=== PATIENT | male | born 1985 | race American Indian/Alaskan Native ===

== ENCOUNTER 2017-05-18 05:49 | Inpatient (IN) | payer SELFPAY ==
[2017-05-18 05:49] VITALS: BMI 36.5
--- NOTE | 2017-05-18 06:16 | C.PDOC ---
Time Seen by Provider: 05/18/17 06:15 Chief Complaint (Nursing): Substance Abuse Past Medical History Vital Signs: Last Vital Signs Temp 98.7 F 05/18/17 06:01 Pulse 108 H 05/18/17 06:01 Resp 15 05/18/17 06:01 BP 109/56 L 05/18/17 06:01 Pulse Ox 92 L 05/18/17 06:01 - Medical History PMH: Anxiety, Asthma, Depression, Schizophrenia, Sleep Apnea Denies: Diabetes, Hepatitis, HIV, HTN, Chronic Kidney Disease, Seizures, Sexually Transmitted Disease - [facility] Procedures IMMOBILIZ/WOUND ATTN NEC (04/12/14) INJECT/INFUSE NEC (04/12/14) Family History: States: Unknown Family Hx - Social History Hx Tobacco Use: No Hx Alcohol Use: Yes Hx Substance Use: Yes - Immunization History Hx Tetanus Toxoid Vaccination: No Hx Influenza Vaccination: No Hx Pneumococcal Vaccination: No ED Course And Treatment O2 Sat by Pulse Oximetry: 92 Disposition Counseled Patient/Family Regarding: Studies Performed, Diagnosis - Disposition Disposition Time: 06:16 Forms: [employer] (Citizen Of [place])
[2017-05-18] MEDS ORDERED: Sodium Chloride 0.9% 1,000 ML IV ONE ×2 (06:22→07:20)
--- NOTE | 2017-05-18 06:22 | C.PDOC ---
History Of Present Illness Pt was found unresponsive by his in bed. Called 911. Received IN narcan and returned slowly to baseline. Good oxygen saturation. Pt was up all night playing a game, and went to bed around 4am. noticed increased snoring, and wanted to give him the cpap machine , but pt refused. He does take percocet for leg pain and xanax. Pt denies any drug use. also states he is on a special diet in which he eats only once a day, high protein Time Seen by Provider: 05/18/17 06:15 Chief Complaint (Nursing): Substance Abuse History Per: EMS, Family History/Exam Limitations: no limitations Onset/Duration Of Symptoms: Mins Current Symptoms Are (Timing): Better Severity: Severe Pain Scale Rating Of: 8 Past Medical History Reviewed: Historical Data, Nursing Documentation, Vital Signs Vital Signs: Last Vital Signs Temp 98.7 F 05/18/17 06:01 Pulse 108 H 05/18/17 06:01 Resp 15 05/18/17 06:01 BP 109/56 L 05/18/17 06:01 Pulse Ox 92 L 05/18/17 06:50 - Medical History PMH: Anxiety, Asthma, Depression, Schizophrenia, Sleep Apnea Denies: Diabetes, Hepatitis, HIV, HTN, Chronic Kidney Disease, Seizures, Sexually Transmitted Disease - [facility] Procedures IMMOBILIZ/WOUND ATTN NEC (04/12/14) INJECT/INFUSE NEC (04/12/14) Family History: States: No Known Family Hx - Social History Hx Tobacco Use: No Hx Alcohol Use: Yes Hx Substance Use: Yes - Immunization History Hx Tetanus Toxoid Vaccination: No Hx Influenza Vaccination: No Hx Pneumococcal Vaccination: No Review Of Systems Constitutional: Negative for: Fever, Chills Eyes: Negative for: Redness ENT: Negative for: Throat Pain Cardiovascular: Negative for: Chest Pain Respiratory: Negative for: Shortness of Breath Gastrointestinal: Negative for: Nausea, Vomiting, Abdominal Pain Genitourinary: Negative for: Dysuria Musculoskeletal: Negative for: Back Pain Skin: Negative for: Rash, Lesions Neurological: Negative for: Weakness Psych: Negative for: Anxiety Physical Exam - Physical Exam Appears: In Acute Distress Skin: Warm, Dry Head: Normacephalic Eye(s): bilateral: Normal Inspection, PERRL, EOMI Oral Mucosa: Dry Neck: Trachea Midline, Supple Chest: Symmetrical Cardiovascular: Rhythm Regular Respiratory: No Rales, Rhonchi (few at bases) Gastrointestinal/Abdominal: Soft, No Tenderness, No Distention Back: Normal Inspection Extremity: Normal ROM Extremity: Bilateral: Atraumatic, Normal Color And Temperature, Normal ROM Pulses: Left Dorsalis Pedis: Normal, Right Dorsalis Pedis: Normal Neurological/Psych: Oriented x3, Normal Speech, Normal Cognition Gait: Unable To Assess ED Course And Treatment - Laboratory Results Result Diagrams: 05/18/17 06:30 O2 Sat by Pulse Oximetry: 92 Critical Care Time - Critical Care Note Total Time (in mins): 30 Documented critical care: time excludes all time spent performing seperately billable procedures. Disposition Counseled Patient/Family Regarding: Studies Performed, Diagnosis - Disposition Disposition Time: 06:22 Condition: UNKNOWN Forms: [employer] ([place]) - Clinical Impression Clinical Impression: Change in mental status Physician Patient Turnover Patient Signed Over To: Christiane Murillo Handoff Comments: pending labs, reevaluation and disposition
[2017-05-18 06:34] LABS: GRANULAR CAST 3 /lpf (0-1); RBC URINE 1 /hpf (0-3); URINE BILIRUBIN NEGATIVE (NEGATIVE); URINE BLOOD NEGATIVE (NEGATIVE); URINE COLOR Yellow (YELLOW); URINE GLUCOSE (UA) 1+ mg/dL (Normal); URINE KETONE NEGATIVE (NEGATIVE); URINE LEUKOCYTE ESTERASE NEG Leu/uL (Negative); URINE PROTEIN 1+ mg/dL (NEGATIVE); URINE UROBILINOGEN NORMAL mg/dL (0.2-1.0); WBC URINE 3 /hpf (0-5)
[2017-05-18 06:37] LABS: BASO # 0.1 K/uL (0.0-0.2); BASO % 0.4 % (0.0-2.0); EOS % 0.2 % (0.0-4.0); HEMATOCRIT 36.7 % (35.0-51.0); LYMPH # 1.5 K/uL (1.0-4.3); LYMPH % 6.4 % (20.0-40.0); MEAN CORPUSCULAR HEMOGLOBIN 28.7 pg (27.0-31.0); MEAN CORPUSCULAR HGB CONC 32.3 g/dL (33.0-37.0); MEAN PLATELET VOLUME 8.4 fL (7.2-11.7); MONO # 0.6 K/uL (0.0-0.8); MONO % 2.6 % (0.0-10.0); NRBC % 0.1 % (0.0-2.0); PLATELET COUNT 244 K/uL (130-400); WHITE BLOOD COUNT 23.9 K/uL (4.8-10.8)
[2017-05-18 06:40] LABS: VENOUS BLOOD GAS BASE EXCESS -6.6 mmol/L (0.0-2.0); VENOUS BLOOD GAS PCO2 72 mmHg (40-60); VENOUS BLOOD PH 7.13 (7.32-7.43)
[2017-05-18 06:41] LABS: INR 1.1
[2017-05-18 06:54] LABS: ALB/GLOB RATIO 1.3 (1.0-2.1); TOTAL PROTEIN 6.8 g/dL (6.3-8.3)
[2017-05-18 06:55] LABS: CALCIUM 8.2 mg/dl (8.6-10.4)
[2017-05-18 07:02] LABS: POTASSIUM 6.6 mmol/L (3.6-5.2)
--- NOTE | 2017-05-18 07:23 | CT ---
EXAM: CT Head Without Intravenous Contrast EXAM DATE/TIME: 05/18/2017 6:22 AM CLINICAL HISTORY: 32 years old, male; Pain; Headache and other: AMS TECHNIQUE: Axial computed tomography images of the head/brain without intravenous contrast. All CT scans at this facility use one or more dose reduction techniques, viz.: automated exposure control; ma/kV adjustment per patient size (including targeted exams where dose is matched to indication; i.e. head); or iterative reconstruction technique. COMPARISON: No relevant prior studies available. FINDINGS: No intracranial hemorrhage. No intracranial edema. No evidence of infarct. No significant fluid in the sinuses or mastoid air cells. IMPRESSION: No acute findings.
[2017-05-18] MEDS ORDERED: Naloxone 0.4 mg/ml Inj (Adult) IV STA (07:44)
[2017-05-18] MEDS ORDERED: Sodium Chloride 0.9% 1,000 ML ONE (07:50)
[2017-05-18] MEDS ORDERED: Naloxone 0.4 mg/ml Inj (Adult) ONE (07:50)
[2017-05-18 07:53] LABS: ABG ALLEN TEST POS; ARTERIAL BLOOD GAS MODE BiPAP; DRAW SITE RR
[2017-05-18 08:23] LABS: NEUTROPHIL 81 % (50-75); TOTAL CELLS COUNTED 100
[2017-05-18 08:30] LABS: POTASSIUM 4.6 mmol/L (3.6-5.2)
[2017-05-18 08:33] LABS: CALCIUM 7.9 mg/dl (8.6-10.4)
--- NOTE | 2017-05-18 08:36 | RAD ---
HISTORY: AMS COMPARISON: None available. TECHNIQUE: Chest, one view. FINDINGS: Examination limited by habitus and hypoinflation. LUNGS: Subsegmental atelectasis, right lung base. PLEURA: No significant pleural effusion identified. No definite pneumothorax . CARDIOVASCULAR: Borderline cardiomegaly, likely exaggerated by hypoinflation and portable technique. OSSEOUS STRUCTURES: No acute osseous abnormality identified. VISUALIZED UPPER ABDOMEN: Unremarkable. OTHER FINDINGS: None. IMPRESSION: Subsegmental atelectasis, right lung base. Borderline cardiomegaly, likely exaggerated by hypoinflation and portable technique.
[2017-05-18 10:11] LABS: BASO # 0.1 K/uL (0.0-0.2); BASO % 0.3 % (0.0-2.0); EOS % 0.1 % (0.0-4.0); HEMATOCRIT 34.3 % (35.0-51.0); LYMPH # 1.8 K/uL (1.0-4.3); LYMPH % 6.4 % (20.0-40.0); MEAN CELL VOLUME 88.2 fL (80.0-94.0); MEAN CORPUSCULAR HEMOGLOBIN 28.6 pg (27.0-31.0); MEAN CORPUSCULAR HGB CONC 32.4 g/dL (33.0-37.0); MEAN PLATELET VOLUME 8.7 fL (7.2-11.7); MONO # 1.4 K/uL (0.0-0.8); RED CELL DISTRIBUTION WIDTH 14.9 % (11.5-14.5)
--- NOTE | 2017-05-18 11:44 | CT ---
CT chest, abdomen, and pelvis without IV contrast Indication: Worsening leukocytosis, altered mental status Technique: Contiguous axial images of the chest, abdomen, and pelvis without oral or IV contrast. Coronal and Sagittal reformats generated and reviewed. This CT exam was performed using 1 or more of the falling dose reduction techniques: Automated exposure control, adjustment of the MAA and/or kV according to patient size, and/or use of iterative reconstruction technique. Radiation dose: Total exam DLP = 2039.49 MGy-cm. Comparison: CT abdomen and pelvis without oral or IV contrast performed 10/11/15 Findings: Visualized portions of the inferior thyroid gland appear unremarkable. The unenhanced mediastinal and hilar vascular structures appear grossly unremarkable. Sub cm prevascular and mediastinal lymph nodes, nonspecific. The heart appears within normal limits of size. Mild dependent basilar atelectasis. No focal consolidation. No pleural effusion. No pneumothorax. No suspicious pulmonary nodules measuring greater than 5 mm. Hepatomegaly. Hypoattenuation of the liver compatible with hepatic steatosis. The noncontrast spleen, kidneys, pancreas, adrenal glands, and gallbladder appear unremarkable. Sub cm mesenteric/retroperitoneal lymph nodes, nonspecific. The stomach is nondistended. Lack of oral contrast limits evaluation for bowel pathology. The bowel loops appear within normal limits of caliber without evidence of intestinal obstruction. The appendix appears within normal limits of caliber. No secondary signs of acute appendicitis.There is no definite free air. Distended urinary bladder appears otherwise unremarkable. No acute osseous abnormality is detected. Impression: Hepatomegaly. Hepatic steatosis.
[2017-05-18 12:11] LABS: ABG ALLEN TEST UNABLE; CARBOXYHEMOGLOBIN 2.8 % (0.5-1.5); DRAW SITE LR; METHEMOGLOBIN 1.2 % (0.0-3.0)
[2017-05-18 13:31] VITALS: RESP 20
--- NOTE | 2017-05-18 13:38 | CP.PCM.HP ---
<Tommy Mojica - Last Filed: 05/18/17 13:24> History of Present Illness - History of Present Illness History of Present Illness: cc: "I don't remember what happened" HPI: Patient is a 32 year old male with PMHx of chronic back and knee pain, anxiety presenting to the ED after being brought in by ambulance after being found unresponsive in bed by his , as per ED note. Patient is unable to give a detailed history, he states he doesn't recall anything about what happened. He says the last thing he recalls is taking one percocet and one xanax prior, then going to bed. The next thing he knew, he woke up in the hospital. The ED physician notes that his believes he took 2 percocet and 2 xanax and that he has been under stress recently. Patient currently reports no acute complaints. He appears lethargic, but is responsive to questions. PMD: [facility] PMHx: As stated above PSHx: Denies Allergies: NKDA Fam hx: Denies Social hx: Admits to smoking 1 black and miles daily, denies alcohol or drug use. Lives at home with . Present on Admission - Present on Admission Any Indicators Present on Admission: No Review of Systems - Constitutional Constitutional: absent: Anorexia, Chills, Daytime Sleepiness - EENT Eyes: absent: Blurred Vision, Change in Vision - Cardiovascular Cardiovascular: absent: Chest Pain, Claudication, Irregular Heart Rhythm, Leg Edema, Palpitations, Pedal Edema - Respiratory Respiratory: absent: Cough, Dyspnea, Hemoptysis, Dyspnea on Exertion, Wheezing - Gastrointestinal Gastrointestinal: absent: Abdominal Pain, Constipation, Diarrhea, Heartburn, Loose Stools, Nausea - Genitourinary Genitourinary: absent: Difficulty Urinating, Dysuria - Musculoskeletal Musculoskeletal: absent: Back Pain, Myalgias, Numbness, Tingling - Integumentary Integumentary: absent: Skin Ulcer, Sores, Striae, Wounds - Neurological Neurological: absent: Abnormal Movements, Tingling, Tremor, Weakness - Psychiatric Psychiatric: absent: Anxiety, Panic Attacks, Suicidal Ideation Past Patient History - Infectious Disease Hx of Infectious Diseases: None - Tetanus Immunizations Tetanus Immunization: Unknown - Past Social History Smoking Status: Current Some Days Smoker Chewing Tobacco Use: No Cigar Use: No Alcohol: None Drugs: Denies Home Situation {Lives}: With Family - CARDIAC Hx Hypertension: No - PULMONARY Hx Asthma: Yes Hx Sleep Apnea: Yes - NEUROLOGICAL Hx Seizures: No - HEENT Hx HEENT Problems: No - RENAL Hx Chronic Kidney Disease: No - ENDOCRINE/METABOLIC Hx Endocrine Disorders: No - HEMATOLOGICAL/ONCOLOGICAL Hx Human Immunodeficiency Virus (HIV): No - INTEGUMENTARY Hx Dermatological Problems: No - MUSCULOSKELETAL/RHEUMATOLOGICAL Hx Musculoskeletal Disorders: No Hx Back Pain: Yes - GASTROINTESTINAL Hx Gastrointestinal Disorders: No - GENITOURINARY/GYNECOLOGICAL Hx Sexually Transmitted Disorders: No - PSYCHIATRIC Hx Anxiety: Yes Hx Depression: Yes Hx Schizophrenia: Yes Hx Substance Use: Yes - SURGICAL HISTORY Hx Surgeries: No - ANESTHESIA Hx Anesthesia: Yes Hx Anesthesia Reactions: No Hx Malignant Hyperthermia: No Meds Allergies/Adverse Reactions: Allergies Allergy/AdvReac Type Severity Reaction Status Date / Time nut - unspecified Allergy Severe ANAPHYLAXIS Verified 12/09/16 14:29 Physical Exam - Constitutional Appears: Non-toxic, No Acute Distress - Head Exam Head Exam: ATRAUMATIC, NORMAL INSPECTION, NORMOCEPHALIC - Eye Exam Pupil Exam: NORMAL ACCOMODATION - ENT Exam ENT Exam: Mucous Membranes Moist - Respiratory Exam Respiratory Exam: Clear to Auscultation Bilateral, NORMAL BREATHING PATTERN. absent: Prolonged Expiratory Phase, Rales, Rhonchi, Wheezes - Cardiovascular Exam Cardiovascular Exam: REGULAR RHYTHM, +S1, +S2 - GI/Abdominal Exam GI & Abdominal Exam: Normal Bowel Sounds, Soft. absent: Distended, Firm, Guarding, Hernia, Tenderness - Extremities Exam Extremities exam: Positive for: normal capillary refill, pedal pulses present - Neurological Exam Neurological exam: Alert, CN II-XII Intact, Oriented x3 - Psychiatric Exam Psychiatric exam: Normal Affect, Normal Mood - Skin Skin Exam: Dry, Intact, Normal Color, Warm Results - Vital Signs Recent Vital Signs: Last Vital Signs Temp 98.9 F 05/18/17 12:28 Pulse 94 H 05/18/17 12:28 Resp 16 05/18/17 12:28 BP 104/62 05/18/17 12:28 Pulse Ox 97 05/18/17 12:28 - Labs Result Diagrams: 05/18/17 10:08 05/18/17 07:59 Labs: Laboratory Results - last 24 hr 05/18/17 12:08 Puncture Site Lr pCO2 51 H pO2 77 L HCO3 23.5 ABG pH 7.30 L ABG Total CO2 26.7 ABG O2 Saturation 97.9 ABG Base Excess -1.7 ABG Hemoglobin 11.1 L ABG Carboxyhemoglobin 2.8 H POC ABG HHb (Measured) 2.0 ABG Methemoglobin 1.2 Jareth Test Unable A-a O2 Difference 59.0 Respiratory Index 0.8 Hgb O2 Saturation 94.0 L Liter Flow 2.0 FiO2 28.0 Assessment & Plan (1) Drug overdose Status: Acute Comment: Given Narcan in the field and once in ED. initially acidotic on ABG, improved on Bipap in ED. UDS- positive for benzos. Will continue to monitor for lethargy and respiratory distress. Currently stable on nasal cannula (2) Leukocytosis Status: Acute Comment: WBC went up from 23.9 to 28.0. Started on Zosyn 3.375gm IVPB Q6h (05/18). Started on Vanco 1gm IVPB Q24h (05/18/17). f/u blood and urine cultures/ UA. Lactate 1.8 on 05/18/17 (3) Elevated CK Status: Acute Comment: Total CK 592. f/u CK. Started on IVF NS @ 150cc/hr (4) AUDREY (acute kidney injury) Status: Acute Comment: BUN/CR 11/1.9, GFR 50. Started on IVF NS @ 150cc/hr (5) Morbid obesity Status: Acute Comment: Heart Healthy, mod CHO diet. f/u [id number], lipid panel (6) Prophylactic measure Status: Acute Comment: SCDs. Protonix 40mg PO Daily <Jerome Benites H - Last Filed: 05/18/17 15:38> Results - Vital Signs Recent Vital Signs: Last Vital Signs Temp 98.9 F 05/18/17 13:15 Pulse 90 05/18/17 13:15 Resp 20 05/18/17 13:15 BP 122/83 05/18/17 13:15 Pulse Ox 98 05/18/17 13:15 - Labs Result Diagrams: 05/18/17 10:08 05/18/17 07:59 Labs: Laboratory Results - last 24 hr 05/18/17 12:08 Puncture Site Lr pCO2 51 H pO2 77 L HCO3 23.5 ABG pH 7.30 L ABG Total CO2 26.7 ABG O2 Saturation 97.9 ABG Base Excess -1.7 ABG Hemoglobin 11.1 L ABG Carboxyhemoglobin 2.8 H POC ABG HHb (Measured) 2.0 ABG Methemoglobin 1.2 Jareth Test Unable A-a O2 Difference 59.0 Respiratory Index 0.8 Hgb O2 Saturation 94.0 L Liter Flow 2.0 FiO2 28.0 Attending/Attestation - Attestation I have personally seen and examined this patient.: Yes I have fully participated in the care of the patient.: Yes I have reviewed all pertinent clinical information: Yes Notes (Text): Medical Attending: Patient was seen and examined by me - agree with the above note by the resident. Patient was already on 6T when we saw him. Intially there were some concerns he may have needed to go to the ICU due to the respiratory status however he improved with narcan as well as bipap in the ER. By the time I saw the patient he was sleeping and easily awoke. His affect is very very slow and likley seconday to opiate and benzodiazapine. The patient on lab work has a very elevated WBC. This maybe stress related however as a precaution will check blood cultures as well as start IV abx Zosyn and Vancomycin. CXRAY appeared ok at this time. When he is more awake and alert will have to ask again about potential IVDA as he can have an endocarditis risk thank you Jerome Benites
[2017-05-18] MEDS ORDERED: Pantoprazole 40 mg EC Tab PO SCH (14:00)
[2017-05-18] MEDS ORDERED: Piperacillin/Tazobact 3.375 GM in Sodium Chloride 100 ML IVPB SCH (14:00)
[2017-05-18] MEDS: Sodium Chloride 0.9% 1,000 ML IV SCH ×2 (14:56→21:22)
[2017-05-18] MEDS: Piperacillin/Tazobact 3.375 GM in Sodium Chloride 100 ML IVPB SCH ×2 (16:29→22:50)
[2017-05-18 18:14] LABS: RBC URINE 58 /hpf (0-3); URINE BILIRUBIN NEGATIVE (NEGATIVE); URINE BLOOD 3+ (NEGATIVE); URINE COLOR Straw (YELLOW); URINE GLUCOSE (UA) NORMAL (Normal); URINE KETONE NEGATIVE (NEGATIVE); URINE LEUKOCYTE ESTERASE NEG Leu/uL (Negative); URINE PROTEIN NEGATIVE (NEGATIVE); URINE UROBILINOGEN NORMAL mg/dL (0.2-1.0); WBC URINE 3 /hpf (0-5)
[2017-05-19] MEDS: Piperacillin/Tazobact 3.375 GM in Sodium Chloride 100 ML IVPB SCH (03:50)
[2017-05-19] MEDS: Sodium Chloride 0.9% 1,000 ML IV SCH (03:52)
[2017-05-19 06:27] LABS: BASO # 0.1 K/uL (0.0-0.2); BASO % 0.7 % (0.0-2.0); EOS # 0.3 K/uL (0.0-0.7); EOS % 2.7 % (0.0-4.0); HEMATOCRIT 32.8 % (35.0-51.0); LYMPH % 25.5 % (20.0-40.0); MEAN CELL VOLUME 87.5 fL (80.0-94.0); MEAN CORPUSCULAR HEMOGLOBIN 29.6 pg (27.0-31.0); MEAN CORPUSCULAR HGB CONC 33.9 g/dL (33.0-37.0); MONO # 0.5 K/uL (0.0-0.8); MONO % 4.1 % (0.0-10.0); RED CELL DISTRIBUTION WIDTH 14.9 % (11.5-14.5); WHITE BLOOD COUNT 11.9 K/uL (4.8-10.8)
[2017-05-19 06:28] LABS: CHLORIDE 106 mmol/L (98-107); POTASSIUM 4.1 mmol/L (3.6-5.2); SODIUM 140 mmol/L (132-148)
[2017-05-19 06:30] LABS: ALB/GLOB RATIO 1.1 (1.0-2.1); BILIRUBIN,TOTAL 0.7 mg/dL (0.2-1.3); CARBON DIOXIDE 27 mmol/L (22-30); CHOLESTEROL 144 mg/dL (0-199); GFR AFRICAN-AMERICAN > 60; TOTAL PROTEIN 5.8 g/dL (6.3-8.3)
[2017-05-19 06:31] LABS: ALKALINE PHOSPHATASE 86 U/L (38-126); ALT/SGPT 93 U/L (21-72); AST/SGOT 84 U/L (17-59); BLOOD UREA NITROGEN 7 mg/dL (9-20); CALCIUM 8.1 mg/dl (8.6-10.4); GLUCOSE,RANDOM 100 mg/dL (75-110); MAGNESIUM 1.9 mg/dL (1.6-2.3); PHOSPHOROUS 4.6 mg/dL (2.5-4.5)
--- NOTE | 2017-05-19 08:37 | CP.PCM.DIS ---
Provider - Provider Date of Admission: 05/18/17 11:38 Attending physician: Jerome Benites DO Time Spent in preparation of Discharge (in minutes): 29 Hospital Course - Lab Results Lab Results: Most Recent Lab Values WBC 11.9 K/uL (4.8-10.8) H D 05/19/17 06:07 RBC 3.75 Mil/uL (4.40-5.90) L 05/19/17 06:07 Hgb 11.1 g/dL (12.0-18.0) L 05/19/17 06:07 Hct 32.8 % (35.0-51.0) L 05/19/17 06:07 MCV 87.5 fL (80.0-94.0) 05/19/17 06:07 MCH 29.6 pg (27.0-31.0) 05/19/17 06:07 MCHC 33.9 g/dL (33.0-37.0) 05/19/17 06:07 RDW 14.9 % (11.5-14.5) H 05/19/17 06:07 Plt Count 169 K/uL (130-400) 05/19/17 06:07 MPV 8.0 fL (7.2-11.7) 05/19/17 06:07 Neut % (Auto) 67.0 % (50.0-75.0) 05/19/17 06:07 Lymph % (Auto) 25.5 % (20.0-40.0) 05/19/17 06:07 [place] % (Auto) 4.1 % (0.0-10.0) 05/19/17 06:07 Eos % (Auto) 2.7 % (0.0-4.0) 05/19/17 06:07 Baso % (Auto) 0.7 % (0.0-2.0) 05/19/17 06:07 Neut # 8.0 K/uL (1.8-7.0) H 05/19/17 06:07 Lymph # 3.0 K/uL (1.0-4.3) 05/19/17 06:07 [place] # 0.5 K/uL (0.0-0.8) 05/19/17 06:07 Eos # 0.3 K/uL (0.0-0.7) 05/19/17 06:07 Baso # 0.1 K/uL (0.0-0.2) 05/19/17 06:07 Neutrophils % (Manual) 81 % (50-75) H 05/18/17 06:30 Band Neutrophils % 4 % (0-2) H 05/18/17 06:30 Lymphocytes % (Manual) 10 % (20-40) L 05/18/17 06:30 Monocytes % (Manual) 5 % (0-10) 05/18/17 06:30 Platelet Estimate Normal (NORMAL) 05/18/17 06:30 Hypochromasia (manual) Slight 05/18/17 06:30 Anisocytosis (manual) Slight 05/18/17 06:30 PT 11.9 SECONDS (9.7-12.2) 05/18/17 06:30 INR 1.1 05/18/17 06:30 APTT 29 SECONDS (21-34) 05/18/17 06:30 Puncture Site Lr 05/18/17 12:08 pCO2 51 mm/Hg (35-45) H 05/18/17 12:08 pO2 77 mm/Hg (80-100) L 05/18/17 12:08 HCO3 23.5 mmol/L (21-28) 05/18/17 12:08 ABG pH 7.30 (7.35-7.45) L 05/18/17 12:08 ABG Total CO2 26.7 mmol/L (22-28) 05/18/17 12:08 ABG O2 Saturation 97.9 % (95-98) 05/18/17 12:08 ABG Base Excess -1.7 mmol/L (-2.0-3.0) 05/18/17 12:08 ABG Hemoglobin 11.1 g/dL (11.7-17.4) L 05/18/17 12:08 ABG Carboxyhemoglobin 2.8 % (0.5-1.5) H 05/18/17 12:08 POC ABG HHb (Measured) 2.0 % (0.0-5.0) 05/18/17 12:08 ABG Methemoglobin 1.2 % (0.0-3.0) 05/18/17 12:08 Jareth Test Unable 05/18/17 12:08 ABG Potassium 4.2 mmol/L (3.6-5.2) 05/18/17 07:49 VBG pH 7.13 (7.32-7.43) L* 05/18/17 06:37 VBG pCO2 72 mmHg (40-60) H* 05/18/17 06:37 VBG HCO3 17.7 mmol/L 05/18/17 06:37 VBG Total CO2 26.2 mmol/L (22-28) 05/18/17 06:37 VBG O2 Sat (Calc) 29.1 % (40-65) L 05/18/17 06:37 VBG Base Excess -6.6 mmol/L (0.0-2.0) L 05/18/17 06:37 VBG Potassium 6.3 mmol/L (3.6-5.2) H* 05/18/17 06:37 A-a O2 Difference 59.0 mm/Hg 05/18/17 12:08 Respiratory Index 0.8 05/18/17 12:08 Hgb O2 Saturation 94.0 % (95.0-98.0) L 05/18/17 12:08 Sodium 142.0 mmol/l (132-148) 05/18/17 07:49 Chloride 111.0 mmol/L (98-107) H 05/18/17 07:49 Glucose 97 mg/dl (75-110) 05/18/17 07:49 Lactate 1.8 mmol/L (0.7-2.1) 05/18/17 07:49 Liter Flow 2.0 05/18/17 12:08 Vent Mode Bipap 05/18/17 07:49 FiO2 28.0 % 05/18/17 12:08 Inspiratory BiPAP 12 05/18/17 07:49 Expiratory BiPAP 6 05/18/17 07:49 Crit Value Called To Dr gloria yusuf 05/18/17 07:49 Crit Value Called By Shelley hall compotype operator 05/18/17 07:49 Crit Value Read Back Y 05/18/17 07:49 Blood Gas Notified Time 753 05/18/17 07:49 Sodium 140 mmol/L (132-148) 05/19/17 06:07 Potassium 4.1 mmol/L (3.6-5.2) 05/19/17 06:07 Chloride 106 mmol/L (98-107) 05/19/17 06:07 Carbon Dioxide 27 mmol/L (22-30) 05/19/17 06:07 Anion Gap 11 (10-20) 05/19/17 06:07 BUN 7 mg/dL (9-20) L 05/19/17 06:07 Creatinine 1.1 MG/DL (0.8-1.5) 05/19/17 06:07 Est GFR ( Amer) > 60 05/19/17 06:07 Est GFR (Non-Af Amer) > 60 05/19/17 06:07 Random Glucose 100 mg/dL (75-110) 05/19/17 06:07 Calcium 8.1 mg/dl (8.6-10.4) L 05/19/17 06:07 Phosphorus 4.6 mg/dL (2.5-4.5) H 05/19/17 06:07 Magnesium 1.9 mg/dL (1.6-2.3) 05/19/17 06:07 Total Bilirubin 0.7 mg/dL (0.2-1.3) 05/19/17 06:07 AST 84 U/L (17-59) H 05/19/17 06:07 ALT 93 U/L (21-72) H 05/19/17 06:07 Alkaline Phosphatase 86 U/L (38-126) 05/19/17 06:07 Total Creatine Kinase 943 U/L (55-170) H 05/19/17 06:07 Total Protein 5.8 g/dL (6.3-8.3) L 05/19/17 06:07 Albumin 3.0 g/dL (3.5-5.0) L D 05/19/17 06:07 Globulin 2.8 gm/dL (2.2-3.9) 05/19/17 06:07 Albumin/Globulin Ratio 1.1 (1.0-2.1) 05/19/17 06:07 Triglycerides 98 mg/dL (0-149) 05/19/17 06:07 Cholesterol 144 mg/dL (0-199) 05/19/17 06:07 LDL Cholesterol Direct 86 mg/dL (0-129) 05/19/17 06:07 HDL Cholesterol 32 mg/dL (30-70) 05/19/17 06:07 Lipase 197 U/L (23-300) 05/18/17 06:30 Arterial Blood Potassium 4.2 mmol/L (3.6-5.2) 05/18/17 07:49 Venous Blood Potassium 6.3 mmol/L (3.6-5.2) H* 05/18/17 06:37 Urine Color Straw (YELLOW) 05/18/17 17:42 Urine Clarity Clear (Clear) 05/18/17 17:42 Urine pH 6.0 (5.0-8.0) 08 17:42 Ur Specific [place] 1.006 (1.003-1.030) 05/18/17 17:42 Urine Protein Negative mg/dL (NEGATIVE) 05/18/17 17:42 Urine Glucose (UA) Normal mg/dL (Normal) 05/18/17 17:42 Urine Ketones Negative mg/dL (NEGATIVE) 05/18/17 17:42 Urine Blood 3+ (NEGATIVE) H 05/18/17 17:42 Urine Nitrate Negative (NEGATIVE) 05/18/17 17:42 Urine Bilirubin Negative (NEGATIVE) 05/18/17 17:42 Urine Urobilinogen Normal mg/dL (0.2-1.0) 05/18/17 17:42 Ur Leukocyte Esterase Neg [place]/uL (Negative) 05/18/17 17:42 Urine WBC (Auto) 3 /hpf (0-5) 05/18/17 17:42 Urine RBC (Auto) 58 /hpf (0-3) H 05/18/17 17:42 Ur Squamous Epith Cells < 1 /hpf (0-5) 05/18/17 06:16 Hyaline Casts 11-20 /lpf (0-2) H 05/18/17 06:16 Granular Casts (Auto) 3 /lpf (0-1) 05/18/17 06:16 Broad Casts 8 /lpf (0-1) 05/18/17 06:16 Salicylates < 1.0 mg/dL 1 05/18/17 07:59 Urine Opiates Screen Negative (NEGATIVE) 05/18/17 06:16 Urine Methadone Screen Negative (NEGATIVE) 05/18/17 06:16 Acetaminophen < 10.0 ug/mL (10.0-30.0) L 08/25/17 07:59 Ur Barbiturates Screen Negative (NEGATIVE) 05/18/17 06:16 Ur Phencyclidine Scrn Negative (NEGATIVE) 05/18/17 06:16 Ur Amphetamines Screen Negative (NEGATIVE) 05/18/17 06:16 U Benzodiazepines Scrn Positive (NEGATIVE) 05/18/17 06:16 U Oth Cocaine Metabols Negative (NEGATIVE) 05/18/17 06:16 U Cannabinoids Screen Negative (NEGATIVE) 05/18/17 06:16 - Hospital Course Hospital Course: This is a 32 year old male with a history of chronic knee and back pain whom takes Percocet as well as Xanax on a regular basis. The patient was brought into the ER by ambulance after he was found by family to be less responsive than usual. In the ER there was concern that the patient may require intubation since on ABG he was initially low pH and also low O2 saturation however with the administration of narcan as well as Bipap he did well enough to go to the medical telemetry floor. When I saw the patient yesterday he was awake and alert - however somnolent. He was able to answer all questions and then fell back asleep. Today when I saw the patient he was actively walking in the hallway. He denied chest pain, denied palpitations, denied dizziness, denied headache, denied difficulty going to the bathroom, Discharge Exam - Head Exam Head Exam: ATRAUMATIC, NORMAL INSPECTION, NORMOCEPHALIC Discharge Plan - Follow Up Plan Condition: GUARDED Disposition: HOME/ ROUTINE
--- NOTE | 2017-05-19 08:51 | CP.PCM.DIS ---
Provider - Provider Date of Admission: 05/18/17 11:38 Attending physician: Jerome Benites DO Time Spent in preparation of Discharge (in minutes): 29 Hospital Course - Lab Results Lab Results: Most Recent Lab Values WBC 11.9 K/uL (4.8-10.8) H D 05/19/17 06:07 RBC 3.75 Mil/uL (4.40-5.90) L 05/19/17 06:07 Hgb 11.1 g/dL (12.0-18.0) L 05/19/17 06:07 Hct 32.8 % (35.0-51.0) L 05/19/17 06:07 MCV 87.5 fL (80.0-94.0) 05/19/17 06:07 MCH 29.6 pg (27.0-31.0) 05/19/17 06:07 MCHC 33.9 g/dL (33.0-37.0) 05/19/17 06:07 RDW 14.9 % (11.5-14.5) H 05/19/17 06:07 Plt Count 169 K/uL (130-400) 05/19/17 06:07 MPV 8.0 fL (7.2-11.7) 05/19/17 06:07 Neut % (Auto) 67.0 % (50.0-75.0) 05/19/17 06:07 Lymph % (Auto) 25.5 % (20.0-40.0) 05/19/17 06:07 [place] % (Auto) 4.1 % (0.0-10.0) 05/19/17 06:07 Eos % (Auto) 2.7 % (0.0-4.0) 05/19/17 06:07 Baso % (Auto) 0.7 % (0.0-2.0) 05/19/17 06:07 Neut # 8.0 K/uL (1.8-7.0) H 05/19/17 06:07 Lymph # 3.0 K/uL (1.0-4.3) 05/19/17 06:07 [place] # 0.5 K/uL (0.0-0.8) 05/19/17 06:07 Eos # 0.3 K/uL (0.0-0.7) 05/19/17 06:07 Baso # 0.1 K/uL (0.0-0.2) 05/19/17 06:07 Neutrophils % (Manual) 81 % (50-75) H 05/18/17 06:30 Band Neutrophils % 4 % (0-2) H 05/18/17 06:30 Lymphocytes % (Manual) 10 % (20-40) L 05/18/17 06:30 Monocytes % (Manual) 5 % (0-10) 05/18/17 06:30 Platelet Estimate Normal (NORMAL) 05/18/17 06:30 Hypochromasia (manual) Slight 05/18/17 06:30 Anisocytosis (manual) Slight 05/18/17 06:30 PT 11.9 SECONDS (9.7-12.2) 05/18/17 06:30 INR 1.1 05/18/17 06:30 APTT 29 SECONDS (21-34) 05/18/17 06:30 Puncture Site Lr 05/18/17 12:08 pCO2 51 mm/Hg (35-45) H 05/18/17 12:08 pO2 77 mm/Hg (80-100) L 05/18/17 12:08 HCO3 23.5 mmol/L (21-28) 05/18/17 12:08 ABG pH 7.30 (7.35-7.45) L 05/18/17 12:08 ABG Total CO2 26.7 mmol/L (22-28) 05/18/17 12:08 ABG O2 Saturation 97.9 % (95-98) 05/18/17 12:08 ABG Base Excess -1.7 mmol/L (-2.0-3.0) 05/18/17 12:08 ABG Hemoglobin 11.1 g/dL (11.7-17.4) L 05/18/17 12:08 ABG Carboxyhemoglobin 2.8 % (0.5-1.5) H 05/18/17 12:08 POC ABG HHb (Measured) 2.0 % (0.0-5.0) 05/18/17 12:08 ABG Methemoglobin 1.2 % (0.0-3.0) 05/18/17 12:08 Jareth Test Unable 05/18/17 12:08 ABG Potassium 4.2 mmol/L (3.6-5.2) 05/18/17 07:49 VBG pH 7.13 (7.32-7.43) L* 05/18/17 06:37 VBG pCO2 72 mmHg (40-60) H* 05/18/17 06:37 VBG HCO3 17.7 mmol/L 05/18/17 06:37 VBG Total CO2 26.2 mmol/L (22-28) 05/18/17 06:37 VBG O2 Sat (Calc) 29.1 % (40-65) L 05/18/17 06:37 VBG Base Excess -6.6 mmol/L (0.0-2.0) L 05/18/17 06:37 VBG Potassium 6.3 mmol/L (3.6-5.2) H* 05/18/17 06:37 A-a O2 Difference 59.0 mm/Hg 05/18/17 12:08 Respiratory Index 0.8 05/18/17 12:08 Hgb O2 Saturation 94.0 % (95.0-98.0) L 05/18/17 12:08 Sodium 142.0 mmol/l (132-148) 05/18/17 07:49 Chloride 111.0 mmol/L (98-107) H 05/18/17 07:49 Glucose 97 mg/dl (75-110) 05/18/17 07:49 Lactate 1.8 mmol/L (0.7-2.1) 05/18/17 07:49 Liter Flow 2.0 05/18/17 12:08 Vent Mode Bipap 05/18/17 07:49 FiO2 28.0 % 05/18/17 12:08 Inspiratory BiPAP 12 05/18/17 07:49 Expiratory BiPAP 6 05/18/17 07:49 Crit Value Called To Dr gloria yusuf 05/18/17 07:49 Crit Value Called By Shelley hall steamfitter apprentice 05/18/17 07:49 Crit Value Read Back Y 05/18/17 07:49 Blood Gas Notified Time 753 05/18/17 07:49 Sodium 140 mmol/L (132-148) 05/19/17 06:07 Potassium 4.1 mmol/L (3.6-5.2) 05/19/17 06:07 Chloride 106 mmol/L (98-107) 05/19/17 06:07 Carbon Dioxide 27 mmol/L (22-30) 05/19/17 06:07 Anion Gap 11 (10-20) 05/19/17 06:07 BUN 7 mg/dL (9-20) L 05/19/17 06:07 Creatinine 1.1 MG/DL (0.8-1.5) 05/19/17 06:07 Est GFR ( Amer) > 60 05/19/17 06:07 Est GFR (Non-Af Amer) > 60 05/19/17 06:07 Random Glucose 100 mg/dL (75-110) 05/19/17 06:07 Calcium 8.1 mg/dl (8.6-10.4) L 05/19/17 06:07 Phosphorus 4.6 mg/dL (2.5-4.5) H 05/19/17 06:07 Magnesium 1.9 mg/dL (1.6-2.3) 05/19/17 06:07 Total Bilirubin 0.7 mg/dL (0.2-1.3) 05/19/17 06:07 AST 84 U/L (17-59) H 05/19/17 06:07 ALT 93 U/L (21-72) H 05/19/17 06:07 Alkaline Phosphatase 86 U/L (38-126) 05/19/17 06:07 Total Creatine Kinase 943 U/L (55-170) H 05/19/17 06:07 Total Protein 5.8 g/dL (6.3-8.3) L 05/19/17 06:07 Albumin 3.0 g/dL (3.5-5.0) L D 05/19/17 06:07 Globulin 2.8 gm/dL (2.2-3.9) 05/19/17 06:07 Albumin/Globulin Ratio 1.1 (1.0-2.1) 05/19/17 06:07 Triglycerides 98 mg/dL (0-149) 05/19/17 06:07 Cholesterol 144 mg/dL (0-199) 05/19/17 06:07 LDL Cholesterol Direct 86 mg/dL (0-129) 05/19/17 06:07 HDL Cholesterol 32 mg/dL (30-70) 05/19/17 06:07 Lipase 197 U/L (23-300) 05/18/17 06:30 Arterial Blood Potassium 4.2 mmol/L (3.6-5.2) 05/18/17 07:49 Venous Blood Potassium 6.3 mmol/L (3.6-5.2) H* 05/18/17 06:37 Urine Color Straw (YELLOW) 05/18/17 17:42 Urine Clarity Clear (Clear) 05/18/17 17:42 Urine pH 6.0 (5.0-8.0) 08 17:42 Ur Specific [place] 1.006 (1.003-1.030) 05/18/17 17:42 Urine Protein Negative mg/dL (NEGATIVE) 05/18/17 17:42 Urine Glucose (UA) Normal mg/dL (Normal) 05/18/17 17:42 Urine Ketones Negative mg/dL (NEGATIVE) 05/18/17 17:42 Urine Blood 3+ (NEGATIVE) H 05/18/17 17:42 Urine Nitrate Negative (NEGATIVE) 05/18/17 17:42 Urine Bilirubin Negative (NEGATIVE) 05/18/17 17:42 Urine Urobilinogen Normal mg/dL (0.2-1.0) 05/18/17 17:42 Ur Leukocyte Esterase Neg [place]/uL (Negative) 05/18/17 17:42 Urine WBC (Auto) 3 /hpf (0-5) 05/18/17 17:42 Urine RBC (Auto) 58 /hpf (0-3) H 05/18/17 17:42 Ur Squamous Epith Cells < 1 /hpf (0-5) 05/18/17 06:16 Hyaline Casts 11-20 /lpf (0-2) H 05/18/17 06:16 Granular Casts (Auto) 3 /lpf (0-1) 05/18/17 06:16 Broad Casts 8 /lpf (0-1) 05/18/17 06:16 Salicylates < 1.0 mg/dL 1 05/18/17 07:59 Urine Opiates Screen Negative (NEGATIVE) 05/18/17 06:16 Urine Methadone Screen Negative (NEGATIVE) 05/18/17 06:16 Acetaminophen < 10.0 ug/mL (10.0-30.0) L 08/25/17 07:59 Ur Barbiturates Screen Negative (NEGATIVE) 05/18/17 06:16 Ur Phencyclidine Scrn Negative (NEGATIVE) 05/18/17 06:16 Ur Amphetamines Screen Negative (NEGATIVE) 05/18/17 06:16 U Benzodiazepines Scrn Positive (NEGATIVE) 05/18/17 06:16 U Oth Cocaine Metabols Negative (NEGATIVE) 05/18/17 06:16 U Cannabinoids Screen Negative (NEGATIVE) 05/18/17 06:16 - Hospital Course Hospital Course: This is a 32 year old male with a past medical history of chronic knee and back pain. He reports normally taking Percocet as well as Xanax before he sleeps at night. He was found by family members who were concerned about his level of lethargy and he was brought to the ER and appeared to be in respiratory distress. In the ER he had ABGs done which showed a low SpO2 as well as low pH and there were concerns that he may require intubation. However when narcan was administered he responded very well. With the use of Bipap to help with his breathing he was stable enough to be brought to the medical telemetry floor. The patient was brought to the 6th floor when I saw him. At that time he was awake, alert, and almost able to answer all questions appropriately - however he had a very slow affect. He answered questions slowly as well. He was not suicidal when asked and did not answer questions that would be concerning for potential self harm when I spoke with him. The next morning today he is walking and ambulating on his own accord. He is very pleasant and calm to speak too. On physical exam we also had him walk with us and he denied having chest pain, denied shortness of breath, denied palpitations, denied headaches when he walked with us. Denied abdominal pain, denied urinary or BM problems. He also ate breakfast well. On monitoring specialist he was NSR in the 90s when walking, no PVC or runs of Vtac were seen On review of blood work Hgb was stable and also the WBC decreased as well. Vital signs also stable. He is ambulating very well. We advised the patient he needs to use extra care when taking his medications since it can cause episodes of respiratory depression. Discharge Exam - Head Exam Head Exam: ATRAUMATIC, NORMAL INSPECTION, NORMOCEPHALIC - Eye Exam Eye Exam: EOMI, Normal appearance - ENT Exam ENT Exam: Mucous Membranes Moist - Respiratory Exam Respiratory Exam: Clear to PA & Lateral, NORMAL BREATHING PATTERN, UNREMARKABLE - Cardiovascular Exam Cardiovascular Exam: REGULAR RHYTHM. absent: Diastolic murmur, Systolic Murmur - GI/Abdominal Exam GI & Abdominal Exam: Normal Bowel Sounds, Unremarkable - Neurological Exam Neurological exam: Alert, CN II-XII Intact, Normal Gait, Oriented x3 - Psychiatric Exam Psychiatric exam: Normal Affect, Normal Mood - Skin Skin Exam: Normal Color, Warm Discharge Plan - Follow Up Plan Condition: GUARDED Disposition: HOME/ ROUTINE
[2017-05-19 11:27] VITALS: BP 132/86; PULSE 85; TEMP 98.8; O2SAT 99
--- NOTE | 2017-05-19 20:01 | CARD ---
APPROVED REPORT EKG Measurement Heart [id number] <Conclusion> Normal sinus rhythm Nonspecific T wave abnormality Abnormal ECG
== END 2017-05-19 10:35 | disposition home or self-care (01) | DRG 918 ==
LOC: C.ER 05:49 → C.9E 11:38 → C.6T 12:22
PROVIDERS: ADMIT Hospitalist; ATTEND Hospitalist
PROC: 5A09357 Assistance with Respiratory Ventilation, Less than 24 Consecutive Hours, Continuous Positive Airway Pressure (ICD-10-PCS; principal; 2017-05-18)
DX: T42.4X1A Poisoning by benzodiazepines, accidental (unintentional), initial encounter (principal); N17.9 Acute kidney failure, unspecified; T40.601A Poisoning by unspecified narcotics, accidental (unintentional), initial encounter; J80 Acute respiratory distress syndrome; E87.2 Acidosis; E66.01 Morbid (severe) obesity due to excess calories; M62.82 Rhabdomyolysis; D72.829 Elevated white blood cell count, unspecified; M54.9 Dorsalgia, unspecified; F17.200 Nicotine dependence, unspecified, uncomplicated; F20.9 Schizophrenia, unspecified; G47.30 Sleep apnea, unspecified; J45.909 Unspecified asthma, uncomplicated; K76.0 Fatty (change of) liver, not elsewhere classified; M25.569 Pain in unspecified knee

== ENCOUNTER 2017-10-07 23:19 | Emergency (ER) | payer MEDICAID ==
[2017-10-07 23:19] VITALS: BMI 36.5
[2017-10-07 23:27] VITALS: O2SAT 98
[2017-10-08] MEDS ORDERED: Sodium Chloride 0.9% 1,000 ML IV ONE (00:06)
--- NOTE | 2017-10-08 00:08 | C.PDOC ---
History Of Present Illness Patient is a 32 y/o male who presents to the ED with a complaint of lightheadedness for the past 1 day. 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 Denies any true vertigo, excessive sweating, increased thirst or urination, nausea, vomiting, or diarrhea. Admits to feeling dehydrated. No other physical complaints at this time. Chief Complaint (Nursing): Dizziness/Lightheaded History Per: Patient History/Exam Limitations: no limitations Onset/Duration Of Symptoms: Hrs, Waxing/Waning Current Symptoms Are (Timing): Still Present Current Symptoms: light headed Associated Symptoms Preceding Syncopal Episode: Lightheadedness. denies: No Predromal Symptoms (Sudden Onset) Seizure Or Post-ictal Symptoms: None Possible Causative Factor(s): Recent Alcohol. denies: Vertigo, Diurectics, New Medications Fall Associated With With Symptoms: No Recent travel outside of the [place]: No - Symptoms Of CVA Recent Aspirin Use: No Current Coumadin Use?: No Recent Head Trauma: No Past Medical History Reviewed: Historical Data, Nursing Documentation, Vital Signs Vital Signs: Last Vital Signs Temp 98.1 F 10/08/17 01:43 Pulse 90 10/08/17 01:43 Resp 18 10/08/17 01:43 BP 135/82 10/08/17 01:43 Pulse Ox 98 10/08/17 02:26 - Medical History PMH: Anxiety, Arthritis (BACK AND KNEE PAIN), Asthma, Depression, Schizophrenia , Sleep Apnea Denies: Diabetes, Hepatitis, HIV, HTN, Chronic Kidney Disease, Seizures, Sexually Transmitted Disease Surgical History: No Surg Hx - [facility] ASSISTANCE WITH RESPIRATORY VENTILATION, <24 HRS, CPAP (05/18/17) IMMOBILIZ/WOUND ATTN NEC (04/12/14) INJECT/INFUSE NEC (04/12/14) Family History: States: Unknown Family Hx - Social History Hx Tobacco Use: No Hx Alcohol Use: No Hx Substance Use: No (marjuana) - Immunization History Hx Tetanus Toxoid Vaccination: No Hx Influenza Vaccination: No Hx Pneumococcal Vaccination: No Review Of Systems Gastrointestinal: Negative for: Nausea, Vomiting, Diarrhea Genitourinary: Negative for: Frequency, Incontinence Neurological: Positive for: Other (denies true vertigo) Physical Exam - Physical Exam Appears: Well, Non-toxic, No Acute Distress, Other (fatigued) Skin: Normal Color, Warm, Dry Head: Atraumatic, Normacephalic Eye(s): bilateral: Normal Inspection Oral Mucosa: Moist Chest: Symmetrical Cardiovascular: Rhythm Regular, No Murmur, Other (resting pulse 113 bpm) Respiratory: Normal Breath Sounds, No Rales, No Rhonchi, No Wheezing Neurological/Psych: Oriented x3, Normal Speech, Normal Cognition, Other (no focal deficits) ED Course And Treatment - Laboratory Results Result Diagrams: 10/08/17 00:36 10/08/17 00:36 O2 Sat by Pulse Oximetry: 98 Medical Decision Making Medical Decision Making: clinical impression: resting tachycardia, possible mild dehydration Plan: * EKG * 1 L IV fluids * reasses On Re-evaluation, patient feels better and labs are all WNL. Patient is stable for discharge. Disposition - Disposition Referrals: [facility] [Outside] Disposition: HOME/ ROUTINE Disposition Time: :15 Condition: GOOD Instructions: Dehydration (ED) Forms: [facility] (Croatian) - Clinical Impression Clinical Impression: Dehydration - Scribe Statement The provider has reviewed the documentation as recorded by the Scribe Chyna Gutierres All medical record entries made by the Scribe were at my direction and personally dictated by me. I have reviewed the chart and agree that the record accurately reflects my personal performance of the history, physical exam, medical decision making, and the department course for this patient. I have also personally directed, reviewed, and agree with the discharge instructions and disposition.
[2017-10-08 00:39] LABS: BASO # 0.1 K/uL (0.0-0.2); BASO % 1.3 % (0.0-2.0); EOS # 0.1 K/uL (0.0-0.7); EOS % 1.8 % (0.0-4.0); HEMOGLOBIN 13.4 g/dL (12.0-18.0); LYMPH # 1.6 K/uL (1.0-4.3); LYMPH % 19.9 % (20.0-40.0); MEAN CELL VOLUME 87.4 fL (80.0-94.0); MEAN CORPUSCULAR HEMOGLOBIN 30.4 pg (27.0-31.0); MEAN CORPUSCULAR HGB CONC 34.8 g/dL (33.0-37.0); MONO # 0.7 K/uL (0.0-0.8); MONO % 8.8 % (0.0-10.0); NEUT # 5.4 K/uL (1.8-7.0); NEUT % 68.2 % (50.0-75.0); RBC 4.4 Mil/uL (4.40-5.90); WHITE BLOOD COUNT 7.9 K/uL (4.8-10.8)
[2017-10-08 01:08] LABS: GFR AFRICAN-AMERICAN > 60; GFR NON-AFRICAN AMERICAN > 60
[2017-10-08 01:09] LABS: BLOOD UREA NITROGEN 11 mg/dL (9-20)
[2017-10-08 02:05] VITALS: BP 135/82; PULSE 90; RESP 18; TEMP 98.1
== END 2017-10-08 01:40 | disposition home or self-care (01) ==
LOC: C.ER 23:19
DX: E86.0 Dehydration (principal)
CPT/HCPCS: 80048; 85025; 96360; 99284; J7040